=== PATIENT | male | born 1970 | race American Indian/Alaskan Native ===

== ENCOUNTER 2019-01-05 09:12 | Emergency (ER) | payer MEDICARE ==
[2019-01-05 09:23] VITALS: BP 129/77
[2019-01-05] MEDS ORDERED: IBUPROFEN 400 MG TAB PO ONE (09:56)
[2019-01-05] MEDS ORDERED: ACETAMINOPHEN 500 MG TAB PO ONE (09:56)
--- NOTE | 2019-01-05 10:28 | XRay Report ---
LEFT FOOT 2 VIEWS INDICATION / CLINICAL INFORMATION: foot pain. COMPARISON: None available. FINDINGS: No fracture, dislocation or soft tissue swelling is seen within the left foot. Joint spaces are well preserved. Signer Name: Fahad Virk MD Signed: 01/05/2019 10:24 AM Workstation Name: [id number]
--- NOTE | 2019-01-05 10:41 | Emergency Department Report ---
ED General Adult HPI - General Chief complaint: Extremity Injury, Lower Stated complaint: LEFT FOOT PAIN Time Seen by Provider: 01/05/19 09:50 Source: patient Mode of arrival: Ambulatory Limitations: No Limitations - History of Present Illness Initial comments: Patient is a 48-year-old male who presents with left foot pain has been going on for 2 weeks patient states the pain is moderate nothing makes it better and nothing makes it worse. 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 Patient has been trying Motrin for his pain. Severity scale (0 -10): 8 - Related Data Allergies Allergy/AdvReac Type Severity Reaction Status Date / Time No Known Allergies Allergy Unverified 01/11/13 04:14 ED Review of Systems ROS: Stated complaint: LEFT FOOT PAIN Other details as noted in HPI Constitutional: denies: chills, fever Eyes: denies: eye pain, eye discharge, vision change ENT: denies: ear pain, throat pain Respiratory: denies: cough, shortness of breath, wheezing Cardiovascular: denies: chest pain, palpitations Endocrine: no symptoms reported Gastrointestinal: denies: abdominal pain, nausea, diarrhea Genitourinary: denies: urgency, dysuria Musculoskeletal: myalgia. denies: back pain, joint swelling, arthralgia Skin: denies: rash, lesions Neurological: denies: headache, weakness, paresthesias Psychiatric: denies: anxiety, depression Hematological/Lymphatic: denies: easy bleeding, easy bruising ED Past Medical Hx - Past Medical History Previous Medical History?: Yes Hx Asthma: Yes Additional medical history: hearing loss - Surgical History Past Surgical History?: No - Social History Smoking Status: Current Every Day Smoker Substance Use Type: Alcohol ED Physical Exam - General Limitations: No Limitations General appearance: alert, in no apparent distress - Head Head exam: Present: atraumatic, normocephalic - Eye Eye exam: Present: normal appearance - ENT ENT exam: Present: mucous membranes moist - Neck Neck exam: Present: normal inspection - Respiratory Respiratory exam: Present: normal lung sounds bilaterally. Absent: respiratory distress - Cardiovascular Cardiovascular Exam: Present: regular rate, normal rhythm. Absent: systolic murmur, diastolic murmur, rubs, gallop - GI/Abdominal GI/Abdominal exam: Present: soft, normal bowel sounds - Rectal Rectal exam: Present: deferred - Extremities Exam Extremities exam: Present: normal inspection - Back Exam Back exam: Present: normal inspection - Neurological Exam Neurological exam: Present: alert, oriented X3 - Psychiatric Psychiatric exam: Present: normal affect, normal mood - Skin Skin exam: Present: warm, dry, intact, normal color. Absent: rash ED Course Vital Signs 01/05/19 09:19 Temperature 97.4 F L Pulse Rate 63 Respiratory 18 Rate Blood Pressure 129/77 O2 Sat by Pulse 97 Oximetry ED Medical Decision Making - Radiology Data Radiology results: report reviewed, image reviewed Left x-ray foot: No acute osseous injury - Medical Decision Making Chief medical diagnosis: Left foot pain secondary to overuse Differential medical diagnosis Pes planus, fracture I will give patient Tylenol or Motrin and I'll get x-rays Xray's look unremarkable I'll have patient follow up with primary care doctor and refer patient to have cushion soles. Discussed plan with patient patient agrees with plan. Critical care attestation.: If time is entered above; I have spent that time in minutes in the direct care of this critically ill patient, excluding procedure time. ED Disposition Clinical Impression: Left foot pain Disposition: DC-01 TO HOME OR SELFCARE Is pt being admited?: No Does the pt Need Aspirin: No Condition: Stable Instructions: Arthralgia (ED) Referrals: LONDON SAM MD [Referring] - 3-5 Days
== END 2019-01-05 10:59 | disposition home or self-care (01) ==
LOC: ED 09:12
DX: M79.672 Pain in left foot (principal); J45.909 Unspecified asthma, uncomplicated; F17.200 Nicotine dependence, unspecified, uncomplicated

== ENCOUNTER 2020-08-21 10:00 | Emergency (ER) | payer MEDICAID, MEDICARE ==
[2020-08-21] MEDS ORDERED: SODIUM CHLORIDE 0.9% 1000 ML 1,000 ML IV ONE (11:20)
[2020-08-21] MEDS ORDERED: CLINDAMYCIN 600 MG/50 mL 600 MG/50 ML BAG IV ONE (11:21)
[2020-08-21 12:08] LABS: Basophils # (Auto) 0.1 K/mm3 (0.0-0.1); Basophils % (Auto) 0.7 % (0.0-1.8); Eosinophils % (Auto) 0.4 % (0.0-4.3); Hemoglobin 15.2 gm/dl (11.8-15.2); Lymphocytes # (Auto) 1.2 K/mm3 (1.2-5.4); Lymphocytes % (Auto) 14.1 % (13.4-35.0); Mean Corpuscular HGB Conc 35 % (32-34); Mean Corpuscular Volume 98 fl (84-94); Monocytes # (Auto) 1.1 K/mm3 (0.0-0.8); Monocytes % (Auto) 12.3 % (0.0-7.3); Platelet Count 260 K/mm3 (140-440); Red Blood Count 4.49 M/mm3 (3.65-5.03); Red Cell Distribution Width 12.7 % (13.2-15.2)
[2020-08-21 12:29] LABS: BUN/Creatinine Ratio 11; Blood Urea Nitrogen 10 mg/dL (9-20); Calcium 9.1 mg/dL (8.4-10.2); Hemolysis Index 4
[2020-08-21 12:51] VITALS: BP 170/96
--- NOTE | 2020-08-21 12:52 | Emergency Department Report ---
ED General Adult HPI - General Chief complaint: Dental/Oral Stated complaint: TOOTH ABCESS/BODY PAIN Time Seen by Provider: 08/21/20 10:53 Source: patient Mode of arrival: Ambulatory Limitations: No Limitations - History of Present Illness Initial comments: 50-year-old male states he went to [facility] Monday and was placed on penicillin 4 times a day which he began on Monday. He was diagnosed with a dental infection. Today (Monday) he reports increased swelling. He denies fever or chills. He is able to swallow and breathe normally. He admits no dental care chronically. He also admits to noncompliance with his blood pressure medication. He has had chronic problems with the right lower molar and premolar dentition. -: Gradual Severity scale (0 -10): 9 - Related Data Previous Rx's Medication Instructions Recorded Last Taken Type Clindamycin [Clindamycin CAP] 150 mg PO QID #50 capsule 08/21/20 Unknown Rx HYDROcodone/APAP 5-325 [[place] 1 each PO Q6HR PRN #10 tablet 08/21/20 Unknown Rx 5/325] amLODIPine 5 mg PO DAILY #30 tab 08/21/20 Unknown Rx Allergies Allergy/AdvReac Type Severity Reaction Status Date / Time No Known Allergies Allergy Unverified 01/11/13 04:14 ED Review of Systems ROS: Stated complaint: TOOTH ABCESS/BODY PAIN Other details as noted in HPI Constitutional: denies: chills, fever Eyes: denies: eye pain, vision change ENT: dental pain. denies: ear pain, throat pain Respiratory: denies: cough, shortness of breath Cardiovascular: denies: chest pain, palpitations Endocrine: no symptoms reported Gastrointestinal: denies: abdominal pain, nausea, diarrhea Genitourinary: denies: urgency, dysuria Musculoskeletal: denies: back pain, joint swelling, arthralgia Skin: denies: rash, lesions Neurological: denies: headache, weakness, paresthesias Psychiatric: denies: anxiety, depression Hematological/Lymphatic: denies: easy bleeding, easy bruising ED Past Medical Hx - Past Medical History Previous Medical History?: Yes Hx Asthma: Yes Additional medical history: hearing loss - Social History Smoking Status: Current Every Day Smoker Substance Use Type: Alcohol - Medications Home Medications: Home Medications Medication Instructions Recorded Confirmed Last Taken Type Clindamycin [Clindamycin CAP] 150 mg PO QID #50 capsule 08/21/20 Unknown Rx HYDROcodone/APAP 5-325 [[place] 1 each PO Q6HR PRN #10 tablet 08/21/20 Unknown Rx 5/325] amLODIPine 5 mg PO DAILY #30 tab 08/21/20 Unknown Rx ED Physical Exam - General Limitations: No Limitations General appearance: alert, in no apparent distress - Head Head exam: Present: atraumatic, normocephalic - Eye Eye exam: Present: normal appearance. Absent: scleral icterus - ENT ENT exam: Present: mucous membranes moist, other (Patient has soft tissue swelling without fluctuance of the right mandibular face. It is 1-2+. Does not extend into the neck. Related dentition is grossly carious and eroded. There is no gross drainable abscess. The oropharynx is otherwise unaffected) - Neck Neck exam: Present: normal inspection. Absent: tenderness, meningismus - Respiratory Respiratory exam: Present: normal lung sounds bilaterally. Absent: respiratory distress - Cardiovascular Cardiovascular Exam: Present: regular rate, normal rhythm. Absent: systolic murmur, diastolic murmur, rubs, gallop - GI/Abdominal GI/Abdominal exam: Present: soft, normal bowel sounds. Absent: distended, tenderness, guarding, rebound - Rectal Rectal exam: Present: deferred - Extremities Exam Extremities exam: Present: normal inspection - Back Exam Back exam: Present: normal inspection - Neurological Exam Neurological exam: Present: alert, oriented X3, CN II-XII intact. Absent: motor sensory deficit - Psychiatric Psychiatric exam: Present: normal affect, normal mood - Skin Skin exam: Present: warm, dry, intact, normal color. Absent: rash ED Course Vital Signs 08/21/20 08/21/20 08/21/20 10:45 12:18 12:40 Temperature 97.5 F L Pulse Rate 70 88 Respiratory 15 18 18 Rate Blood Pressure 179/159 Blood Pressure 170/96 [Left] O2 Sat by Pulse 99 98 98 Oximetry 08/21/20 08/21/20 12:52 12:55 Temperature Pulse Rate 88 Respiratory 18 18 Rate Blood Pressure 170/96 Blood Pressure [Left] O2 Sat by Pulse 98 98 Oximetry - Reevaluation(s) Reevaluation #1: Patient's labs are within normal limits. He was observed and had no progression of his swelling. He was given IV clindamycin. 08/21/20 13:29 ED Medical Decision Making - Lab Data Result diagrams: 08/21/20 11:34 08/21/20 11:34 Laboratory Results - last 24 hr 08/21/20 08/21/20 11:34 11:34 WBC 8.8 RBC 4.49 Hgb 15.2 Hct 44.0 MCV 98 H MCH 34 H MCHC 35 H RDW 12.7 L Plt Count 260 Lymph % (Auto) 14.1 [place] % (Auto) 12.3 H Eos % (Auto) 0.4 Baso % (Auto) 0.7 Lymph # (Auto) 1.2 [place] # (Auto) 1.1 H Eos # (Auto) 0.0 Baso # (Auto) 0.1 Seg Neutrophils % 72.5 H Seg Neutrophils # 6.4 Sodium 137 Potassium 3.9 Chloride 99.1 Carbon Dioxide 25 Anion Gap 17 BUN 10 Creatinine 0.9 Estimated GFR > 60 BUN/Creatinine Ratio 11 Glucose 87 Calcium 9.1 Critical care attestation.: If time is entered above; I have spent that time in minutes in the direct care of this critically ill patient, excluding procedure time. ED Disposition Clinical Impression: Dental infection, Uncontrolled hypertension Disposition: - TO HOME OR SELFCARE Is pt being admited?: No Does the pt Need Aspirin: No Condition: Stable Instructions: Dental Abscess, [id number], Hypertension (ED), Hypertension, Adult, [id number] Additional Instructions: It is possible that your infection may get worse. I would recommend [facility] is a better choice for follow-up as they do have oral surgeons. Return here as necessary. Rx clindamycin, Vicodin and amlodipine for your blood pressure. Dental/oral surgery follow-up is necessary. Prescriptions: amLODIPine 5 mg PO DAILY #30 tab Clindamycin [Clindamycin CAP] 150 mg PO QID #50 capsule HYDROcodone/APAP 5-325 [[place] 5/325] 1 each PO Q6HR PRN #10 tablet PRN Reason: Pain Referrals: PRIMARY CARE,MD [Primary Care Provider] - 3-5 Days Oral surgeon, dentist [Other] - [facility] [Provider Group] - 2-3 Days Time of Disposition: 13:33
[2020-08-21] MEDS ORDERED: amLODIPine 5 MG TAB PO ONE (13:34)
[2020-08-21] MEDS ORDERED: HYDROcodone/ACETAMINOPHEN 5-325 MG TAB PO ONE (13:34)
== END 2020-08-21 14:25 | disposition home or self-care (01) ==
LOC: ED 10:00
DX: K04.7 Periapical abscess without sinus (principal); I10 Essential (primary) hypertension; J45.909 Unspecified asthma, uncomplicated; F17.200 Nicotine dependence, unspecified, uncomplicated; Z72.89 Other problems related to lifestyle; Z79.899 Other long term (current) drug therapy
CPT/HCPCS: 36415; 80048; 85025; 96365; 99283; J7030

== ENCOUNTER 2021-03-16 16:44 | Emergency (ER) | payer SELFPAY ==
--- NOTE | 2021-03-16 18:05 | Emergency Department Report ---
ED ENT HPI - General Chief complaint: Dental/Oral Stated complaint: FACIAL EDEMA Time Seen by Provider: 03/16/21 17:29 Source: patient Mode of arrival: Ambulatory Limitations: No Limitations - History of Present Illness Initial comments: Patient is a 51-year-old male presents emergency room with complaints of left lower dental pain that began a couple days ago. He states this morning when he woke up he had a left lower facial swelling. He denies any fever, vomiting, chills, difficulty swallowing, difficulty breathing. No allergies to medications. He states it has been several years since he has seen a dentist. - Related Data Previous Rx's Medication Instructions Recorded Last Taken Type Clindamycin [Clindamycin CAP] 150 mg PO QID #50 capsule 08/21/20 Unknown Rx HYDROcodone/APAP 5-325 [[place] 1 each PO Q6HR PRN #10 tablet 08/21/20 Unknown Rx 5/325] Chlorhexidine Mouthwash [Peridex] 15 ml MM BID #1 bottle 03/16/21 Unknown Rx Clindamycin [Clindamycin CAP] 300 mg PO TID 7 Days #21 cap 03/16/21 Unknown Rx Naproxen 375 mg PO BID PRN #14 tablet 03/16/21 Unknown Rx amLODIPine 5 mg PO DAILY #30 tab 03/16/21 Unknown Rx Allergies Allergy/AdvReac Type Severity Reaction Status Date / Time No Known Allergies Allergy Verified 03/16/21 16:59 ED Dental HPI - General Chief complaint: Dental/Oral Stated complaint: FACIAL EDEMA Time Seen by Provider: 03/16/21 17:29 Source: patient Mode of arrival: Ambulatory Limitations: No Limitations - Related Data Previous Rx's Medication Instructions Recorded Last Taken Type Clindamycin [Clindamycin CAP] 150 mg PO QID #50 capsule 08/21/20 Unknown Rx HYDROcodone/APAP 5-325 [[place] 1 each PO Q6HR PRN #10 tablet 08/21/20 Unknown Rx 5/325] Chlorhexidine Mouthwash [Peridex] 15 ml MM BID #1 bottle 03/16/21 Unknown Rx Clindamycin [Clindamycin CAP] 300 mg PO TID 7 Days #21 cap 03/16/21 Unknown Rx Naproxen 375 mg PO BID PRN #14 tablet 03/16/21 Unknown Rx amLODIPine 5 mg PO DAILY #30 tab 03/16/21 Unknown Rx Allergies Allergy/AdvReac Type Severity Reaction Status Date / Time No Known Allergies Allergy Verified 03/16/21 16:59 ED Review of Systems ROS: Stated complaint: FACIAL EDEMA Other details as noted in HPI Comment: All other systems reviewed and negative ED Past Medical Hx - Past Medical History Hx Asthma: Yes Additional medical history: hearing loss - Social History Smoking Status: Current Every Day Smoker Substance Use Type: Alcohol - Medications Home Medications: Home Medications Medication Instructions Recorded Confirmed Last Taken Type Clindamycin [Clindamycin CAP] 150 mg PO QID #50 capsule 08/21/20 Unknown Rx HYDROcodone/APAP 5-325 [[place] 1 each PO Q6HR PRN #10 tablet 08/21/20 Unknown Rx 5/325] Chlorhexidine Mouthwash [Peridex] 15 ml MM BID #1 bottle 03/16/21 Unknown Rx Clindamycin [Clindamycin CAP] 300 mg PO TID 7 Days #21 cap 03/16/21 Unknown Rx Naproxen 375 mg PO BID PRN #14 tablet 03/16/21 Unknown Rx amLODIPine 5 mg PO DAILY #30 tab 03/16/21 Unknown Rx ED Physical Exam - General Limitations: No Limitations General appearance: alert, in no apparent distress - Head Head exam: Present: atraumatic, normocephalic - Eye Eye exam: Present: normal appearance - ENT ENT exam: Present: mucous membranes moist, other (poor dentition, several dental caries/missing teeth, there is left lower gum induration with left lower facial edema, uvula is midline, no uvular edema or deviation, no trismus, no tongue elevation, no muffled voice, no submandibular edema) - Respiratory Respiratory exam: Absent: respiratory distress, accessory muscle use - Neurological Exam Neurological exam: Present: alert, oriented X3 - Psychiatric Psychiatric exam: Present: normal affect, normal mood - Skin Skin exam: Present: warm, dry ED Course Vital Signs 03/16/21 03/16/21 16:58 18:26 Temperature 98.1 F Pulse Rate 60 62 Respiratory 16 Rate Blood Pressure 183/84 Blood Pressure 175/89 [Right] O2 Sat by Pulse 100 100 Oximetry ED Medical Decision Making - Medical Decision Making Patient is a 51-year-old male presents emergency room with complaints of left lower dental pain that began a couple days ago. He states this morning when he woke up he had a left lower facial swelling. He denies any fever, vomiting, c hills, difficulty swallowing, difficulty breathing. No allergies to medications. He states it has been several years since he has seen a dentist. Vitals with blood pressure elevation, otherwise stable, patient was previously started on amlodipine while in the emergency department, he states he never followed up with a primary care doctor regarding his blood pressure, I advised patient that we would give him a 30-day supply of amlodipine, discussed the risk associated with long-term elevated blood pressure, discussed lifestyle modifications and keeping a blood pressure log. On exam:poor dentition, several dental caries/missing teeth, there is left lower gum induration with left lower facial edema, uvula is midline, no uvular edema or deviation, no trismus, no tongue elevation, no muffled voice, no submandibular edema. Examination appears consistent with dental abscess. There is no facial abscess or signs of Carlos's at this time. Patient given prescription for medication. Patient given community resources for dental clinic and primary care. Advised patient Please take medication as prescribed. Please follow-up with a dentist. It is very important that you follow-up with a dentist. Return to emergency room for any new or worsening symptoms. Please follow-up with a primary care doctor regarding the elevation your blood pressure during today's visit. Eat a low-sodium diet. Increase your water intake. Incorporate 30-60 minutes of daily exercise. Keep a blood pressure log. Critical care attestation.: If time is entered above; I have spent that time in minutes in the direct care of this critically ill patient, excluding procedure time. ED Disposition Clinical Impression: Dental caries, Dental abscess, Dentalgia, Elevated blood pressure reading, Non- compliance Disposition: 01 HOME / SELF CARE / HOMELESS Is pt being admited?: No Does the pt Need Aspirin: No Condition: Stable Instructions: Dental Abscess Additional Instructions: Please take medication as prescribed. Please follow-up with a dentist. It is very important that you follow-up with a dentist. Return to emergency room for any new or worsening symptoms. Please follow-up with a primary care doctor regarding the elevation your blood pressure during today's visit. Eat a low-sodium diet. Increase your water intake. Incorporate 36 minutes of daily exercise. Keep a blood pressure log. Prescriptions: amLODIPine 5 mg PO DAILY #30 tab Clindamycin [Clindamycin CAP] 300 mg PO TID 7 Days #21 cap Naproxen 375 mg PO BID PRN #14 tablet PRN Reason: pain Chlorhexidine Mouthwash [Peridex] 15 ml MM BID #1 bottle Referrals: [facility] [Outside] - 3-5 Days BERNARDO BRAVO MD [Staff Physician] - 3-5 Days [facility] [Provider Group] - 3-5 Days Forms: Work/School Release Form(ED) Time of Disposition: 18:03 Print Language: GERMAN
[2021-03-16 18:27] VITALS: BP 175/89
== END 2021-03-16 18:27 | disposition home or self-care (01) ==
LOC: ED 16:44
DX: K04.7 Periapical abscess without sinus (principal); K02.9 Dental caries, unspecified; R03.0 Elevated blood-pressure reading, without diagnosis of hypertension; J45.909 Unspecified asthma, uncomplicated; F17.200 Nicotine dependence, unspecified, uncomplicated; Z72.89 Other problems related to lifestyle; Z79.899 Other long term (current) drug therapy
CPT/HCPCS: 99282

== ENCOUNTER 2021-06-16 23:52 | Emergency (ER) | payer SELFPAY ==
[2021-06-17 00:21] VITALS: BP 179/96
== END 2021-06-17 04:00 | disposition left against medical advice (07) ==
LOC: ED 23:52
DX: M54.9 Dorsalgia, unspecified (principal); Z53.21 Procedure and treatment not carried out due to patient leaving prior to being seen by health care provider